=== PATIENT | female | born 1980 | race Two or more races ===

== ENCOUNTER 2021-01-25 16:32 | Emergency (ER) | payer OTHER ==
[~2021-01-25] VITALS: Ht 167.6 cm; Wt 112.0 kg
[2021-01-25] MEDS ORDERED: DEXAMETHASONE SOD PHOSPHATE 10 MG/ML VIAL ONE (17:28)
[2021-01-25] MEDS ORDERED: CYCLOBENZAPRINE 10 MG TABLET ONE (17:28)
[2021-01-25] MEDS ORDERED: KETOROLAC TROMETHAMINE INJ 60 MG/2 ML VIAL IM ONE ×2 (17:28→17:30)
[2021-01-25] MEDS ORDERED: CYCLOBENZAPRINE 10 MG TABLET PO ONE (17:30)
[2021-01-25] MEDS ORDERED: DEXAMETHASONE SOD PHOSPHATE 4 MG/ML VIAL IM ONE (17:30)
--- NOTE | 2021-01-25 17:30 | NUR ---
URINE COLLECTED AND SENT TO LAB
--- NOTE | 2021-01-25 18:22 | NUR ---
FOREIGN LANGUAGE INTERPRETER AT BEDSIDE
[2021-01-25] MEDS ORDERED: ONDANSETRON 4 MG TAB.RAPDIS ONE (18:29)
[2021-01-25] MEDS ORDERED: HYDROMORPHONE 1 MG/1 ML DISP.SYRIN ONE ×2 (18:29→19:58)
[2021-01-25] MEDS ORDERED: ONDANSETRON 4 MG TAB.RAPDIS SL ONE (18:30)
[2021-01-25] MEDS ORDERED: HYDROMORPHONE 1 MG/1 ML DISP.SYRIN IM ONE ×2 (18:30→20:00)
[2021-01-25] MEDS ORDERED: METOCLOPRAMIDE HCL 10 MG TABLET ONE (19:30)
[2021-01-25] MEDS ORDERED: OXYC-128 PO (19:30)
[2021-01-25] MEDS ORDERED: NAPR500T6 PO (19:30)
[2021-01-25] MEDS ORDERED: METOCLOPRAMIDE HCL 10 MG TABLET PO ONE (19:30)
--- NOTE | 2021-01-25 20:29 | NUR ---
Patient discharged to home in stable condition. Written and verbal after care instructions given. Patient verbalizes understanding of instruction.
[2021-01-26 00:24] VITALS: BP 137/68
== END 2021-01-25 20:29 | disposition home or self-care (01) ==
LOC: ER 16:32
DX: M54.41 Lumbago with sciatica, right side (principal); M25.551 Pain in right hip; Z60.2 Problems related to living alone; Z79.899 Other long term (current) drug therapy
CPT/HCPCS: 72100; 73502; 84703; 96372 ×2; 99284; J1100; J1170 ×2; J1885; J8597; Q0162